=== PATIENT | female | born 1990 | race Caucasian/White ===

== ENCOUNTER 2017-01-04 05:52 | Day surgery (SDC) | payer OTHER ==
[2017-01-03 09:37] VITALS: BMI 33.5
[2017-01-04] VITALS (13 sets, daily range): BP systolic 104–128; BP diastolic 56–72; PULSE 64–90; RESP 16–24; Ht 172.7 cm; Wt 111.9 kg
[~2017-01-04] VITALS: Ht 172.7 cm; Wt 111.9 kg
[~2017-01-04 05:52] MED LIST: LACTATED RINGER'S 1,000 ML IV SCH; SULF500T5 PO; SULFASALAZINE
[2017-01-04 06:23] LABS: ADD SCAN DIFF NO
[2017-01-04 06:30] LABS: BASOPHILS % 0.4 % (0.0-2.0); EOSINOPHILS # 0.1 10^3/ul (0.0-0.5); EOSINOPHILS % 1.9 % (0.0-7.0); HEMATOCRIT 34.9 % (37.0-47.0); HEMOGLOBIN 11.3 g/dl (12.0-16.0); LYMPHOCYTES # 2.3 10^3/ul (0.8-2.9); LYMPHOCYTES % 33.1 % (15.0-51.0); MEAN CORPUSCULAR HEMOGLOBIN 27.6 pg (29.0-33.0); MEAN CORPUSCULAR HGB CONC 32.4 g/dl (32.0-37.0); MEAN CORPUSCULAR VOLUME 85.3 fl (82.0-101.0); MEAN PLATELET VOLUME 11.6 fl (7.4-10.4); MONOCYTE # 0.6 10^3/ul (0.3-0.9); MONOCYTES % 9.1 % (0.0-11.0); NEUTROPHIL # 3.8 10^3/ul (1.6-7.5); NEUTROPHILS % 55.2 % (39.0-77.0); PLATELET COUNT 227 10^3/UL (140-415); RED BLOOD COUNT 4.09 10^6/ul (4.20-5.40); RED CELL DISTRIBUTION WIDTH 13.2 % (11.5-14.5); WHITE BLOOD COUNT 6.9 10^3/ul (4.8-10.8)
[2017-01-04] MEDS ORDERED: METHYLENE BLUE 1% 10 ML INJ ONE (07:06)
[2017-01-04] MEDS ORDERED: THROMBIN 5000 UNIT VIAL ONE (07:06)
[2017-01-04] MEDS ORDERED: MIDAZOLAM 1 MG/ML 2 ML INJ ONE (08:08)
[2017-01-04] MEDS ORDERED: MEPERIDINE 25 MG INJ IV PRN (09:00)
[2017-01-04] MEDS ORDERED: HYDROmorphONE (0.2 MG/ML) 10ML SYG IV PRN ×2 (09:00)
[2017-01-04] MEDS ORDERED: DIPHENHYDRAMINE 50 MG INJ IV PRN (09:00)
[2017-01-04] MEDS ORDERED: ONDANSETRON 4 MG INJ IV PRN (09:00)
[2017-01-04] MEDS ORDERED: KETOROLAC 30 MG INJ ONE (09:38)
[2017-01-04] MEDS ORDERED: ONDANSETRON 4 MG INJ ONE (09:41)
[2017-01-04] MEDS ORDERED: METOCLOPRAMIDE 10 MG INJ ONE (09:41)
[2017-01-04] MEDS ORDERED: ROCURONIUM 50 MG INJ ONE (09:48)
[2017-01-04] MEDS ORDERED: NEOSTIGMINE 3 MG/3 ML SYRINGE ONE (09:48)
[2017-01-04] MEDS ORDERED: GLYCOPYRROLATE 0.4 MG INJ ONE (09:48)
[2017-01-04] MEDS ORDERED: LIDOCAINE 2% (SDV) 5 ML INJ ONE (09:48)
[2017-01-04] MEDS ORDERED: PROPOFOL 20 ML ONE (09:48)
--- NOTE | 2017-01-04 10:06 | PREOPHP ---
DATE OF ADMISSION: 01/04/2017 HISTORY OF PRESENT ILLNESS: A 26-year-old female, 1, para 1, last menstrual period 12/03/19, was admitted due to history of dysmenorrhea and dyspareunia. PAST MEDICAL HISTORY: Ulcerative colitis. PAST SURGICAL HISTORY: , hemorrhoidectomy, abdominoplasty and breast augmentation, cornea t ransplant. ALLERGIES: NO KNOWN ALLERGIES. FAMILY HISTORY: Noncontributory. PHYSICAL EXAMINATION: VITAL SIGNS: Patient is afebrile. Vital signs stable. HEAD, NECK AND CHEST: Within normal limits. ABDOMEN: Soft, nontender and nondistended. PELVIC: Normal. EXTREMITIES: Within normal limits. NEUROLOGIC: Within normal limits. IMPRESSION: Chronic pelvic pain, rule out endometriosis. PLAN: Diagnostic laparoscopy, possible excision of lesions. Risks, benefits and alternatives of th e procedure were explained to the patient. The patient said she understood and gave informed consen t for the procedure. Dictated By: IZZY ALMARAZ/STEFFEN Conf#: [id number] DID#: [id number]
[2017-01-04] MEDS: FENTAnyl 50 MCG/ML VIAL IV PRN ×2 (10:14→10:33)
--- NOTE | 2017-01-04 11:05 | OPR ---
DATE OF OPERATION: 01/04/2017 PREOPERATIVE DIAGNOSIS: 1. Chronic pelvic pain, rule out endometriosis. POSTOPERATIVE DIAGNOSES: 1. Chronic pelvic pain, rule out endometriosis. 2. Omental adhesions. OPERATION PERFORMED: Laparoscopy and lysis of omental adhesions, biopsy of posterior uterine wall a nd the right pelvic area, ablation of uterosacral ligaments. SURGEON: Izzy Buck MD GUN NUMBER AND INTRAOPERATIVE CONSULT: Keeley Mittal MD ANESTHESIA: General. ANESTHESIOLOGIST: Jewel Don MD DESCRIPTION OF PROCEDURE: The patient was taken to the operating room and placed on the operating t able in supine position. After adequate general anesthesia was given, the patient was placed in ramiro jazmyn lithotomy position. The area was prepared and draped in the usual sterile fashion. Using a scalpel, a small incision was made above the umbilicus. A 5 mm trocar was placed into the p eritoneal cavity, 5 mm laparoscope was passed through the trocar and pelvic area was explored. Ther e were omental adhesions involving anterior wall of the abdomen in order to visualize the pelvic are a. Using gyrus bipolar grasper sharp lysis of adhesions was performed. The pelvic area was explore d. The uterus appeared normal size. The ovaries and fallopian tubes appeared to be normal. There were no gross lesions suggestive of endometriosis. There were some areas on the posterior wall of th e uterus with some reactive process of questionable significance. Two trocars were placed in the la teral aspects of the abdomen. The trocars were 5 mm. Using grasper the posterior wall of the uteru s was biopsied and specimen obtained was sent to Pathology. Using cautery the site of the biopsy wa s cauterized and adequate hemostasis was assured. In the right posterior pelvic area there was also another area of questionable significance. Using grasper that area was biopsied also and specimen obtained was sent to Pathology. The biopsy site was cauterized. Adequate hemostasis was assured. Due to patient's chronic pelvic pain at this point, I asked Dr. Mittal to perform ablation of uter osacral ligaments. This part of the procedure will be dictated separately by Dr. Mittal. Pelvic area was irrigated with warm saline. Adequate hemostasis was assured. All the instruments were rem danielle. The trocar sites were reapproximated with 4-0 Monocryl. The patient tolerated the procedure well. Patient was awakened from anesthesia and transferred to recovery in stable condition. ESTIMATED BLOOD LOSS: Minimal. COMPLICATIONS: None. COUNTS: All counts were correct. Dictated By: IZZY BUCK MD GD/NTS Conf#: [id number] DID#: [id number] CC: KEELEY MITTAL MD;*EndCC*
--- NOTE | 2017-01-04 18:29 | OPR ---
Date/Time of Note Date/Time of Note DATE: 01/04/17 TIME: 18:29 Operative Report Procedure Date: January 04, 2017 Preoperative Diagnosis 2 OPERATIVE REPORT [facility] Name: [facility] Date: 01/04/17 Preoperative Diagnosis: Chronic pelvic pain Postoperative Diagnosis: same pathology pending Procedures: 1- Laparoscopy and biopsy of inflammation vs endometriosis (dictated as a separate procedure by Dr. Buck) 2- Consult/Ablation of utero-sacral ligaments Surgeon: Dr. Simental Java [employer] Developer: Dr. Buck Anesthesia: General Indication for Procedure: The patient is a 26- year old female with chronic pelvic pain and dysmenorrhea; and after considering all options with risks and benefits a laparoscopy with possible ablation of endometriosis and procedures as needed was selected. Summary of Procedure: After laparoscopy with initial exploration minimally friable cul-de-sac and uterine tissue was noted with some discoloration not entirely consistent with endometriosis which was biopsied and as the utero-sacral ligaments were involved my opinion was asked and the ligaments were cauterized immediately adjacent to the cervix empirically. The patient tolerated the procedure well. Findings and Procedure: After being prepped and draped in the usual manner a 5 millimeter trocar was Name: [facility] inserted directly cephlad to the umbilicus without incident and the omentum was observed to be adherent to the anterior abdomen. Subsequently, we insufflated to 15 mm Hg and inserted two 5 millimeter trocars laterally without incident and the aforementioned omental adhesions were lysed with sharp dissection and the Omni when able as well as Gyrus bipolar cutting forceps. The patient was then placed in Trendelenburg and mildly discolored tissue was biopsied by Dr. Buck and the adjacent cauterized and transected, after which the considering her chronic pain and involvement of the utero-sacral ligaments my opinion was asked, and given her severe chronic pain regardless I agreed that fulguration of the utero-sacral ligaments was appropriate. Hence, the ureters were visualized bilaterally and immediately adjacent to the cervix, the utero- sacral ligaments were cauterized with the Omni and Gyrus bipolar cutting forceps. After irrigating and assuring hemostasis the gas was removed and the skin of all sites then closed with 5-0 Monocryl suture. The EBL was minimal and the patient tolerated the procedure well and left the OR in good condition. Keeley Simental M.D. KEELEY SIMENTAL MD January 04, 2017 18:29
== END 2017-01-04 11:20 | disposition home or self-care (01) ==
LOC: SDS 05:52
PROVIDERS: ATTEND Obstetrics & Gynecology
DX: N73.6 Female pelvic peritoneal adhesions (postinfective) (principal); R10.2 Pelvic and perineal pain; E66.01 Morbid (severe) obesity due to excess calories; Z68.37 Body mass index [BMI] 37.0-37.9, adult
CPT/HCPCS: 49329; 85025; 86850; 86900; 86901; 88305; J1885; J2175; J2250; J2405; J2710; J2765; J3010; Z7512; Z7610

== ENCOUNTER 2017-05-16 16:43 | Inpatient (IN) | END 2017-05-20 20:30 | disposition home or self-care (01) | DRG 386 | DX: K50.10 Crohn's disease of large intestine without complications (principal); R71.0 Precipitous drop in hematocrit; K62.5 Hemorrhage of anus and rectum; H15.109 Unspecified episcleritis, unspecified eye; Z94.7 Corneal transplant status; F31.9 Bipolar disorder, unspecified; H16.9 Unspecified keratitis ==

== ENCOUNTER 2017-05-26 13:53 | Inpatient (IN) | payer OTHER ==
[~2017-05-26] VITALS: Ht 172.7 cm; Wt 88.4 kg
[~2017-05-26 13:53] MED LIST changes: +ASA400 PO; +DICL2.5D11 RIGHT EYE; +FER325 PO; -LACTATED RINGER'S 1,000 ML IV SCH; +LUBI24CA7 PO; +MULTI PO; +PRED10TA PO; -SULFASALAZINE; +[UNRECOGNIZED DRUG - OTHER] PR
[2017-05-26] MEDS ORDERED: SOD CHLORIDE 0.9% 1,000 ML IV STA (14:36)
[2017-05-26] MEDS ORDERED: KETOROLAC 30 MG INJ IV STA (14:36)
[2017-05-26 15:05] LABS: BASOPHILS % 0.3 % (0.0-2.0); EOSINOPHILS % 0.1 % (0.0-7.0); HEMATOCRIT 28.8 % (37.0-47.0); HEMOGLOBIN 9.1 g/dl (12.0-16.0); LYMPHOCYTES # 2.2 10^3/ul (0.8-2.9); LYMPHOCYTES % 18.6 % (15.0-51.0); MEAN CORPUSCULAR HEMOGLOBIN 26.9 pg (29.0-33.0); MEAN CORPUSCULAR HGB CONC 31.6 g/dl (32.0-37.0); MEAN CORPUSCULAR VOLUME 85.2 fl (82.0-101.0); MEAN PLATELET VOLUME 9.8 fl (7.4-10.4); MONOCYTE # 0.9 10^3/ul (0.3-0.9); MONOCYTES % 7.3 % (0.0-11.0); NEUTROPHIL # 8.3 10^3/ul (1.6-7.5); NEUTROPHILS % 69.6 % (39.0-77.0); NUCLEATED RED BLOOD CELLS # 0.1 10^3/ul (0.0-0.0); NUCLEATED RED BLOOD CELLS% 0.5 /100WBC (0.0-0.0); PLATELET COUNT 568 10^3/UL (140-415); RED BLOOD COUNT 3.38 10^6/ul (4.20-5.40); RED CELL DISTRIBUTION WIDTH 18.1 % (11.5-14.5); WHITE BLOOD COUNT 11.9 10^3/ul (4.8-10.8)
--- NOTE | 2017-05-26 15:23 | ERA ---
ER Documentation Chief Complaint Date/Time DATE: 05/26/17 TIME: 15:15 Chief Complaint losing conciousness to dinora bathroom,increased hr,sweating,clammy HPI This 26-year-old female with history of ulcerative colitis of the emergency room for increasing near syncope and an episode of syncope when she gets up out of bed to go to the bathroom. No head injury. States that she previously had heavy vaginal bleeding when she was admitted this facility. Reviewed her EMR and see that she was diagnosed with sepsis without source as well as microcytic anemia and normocytic anemia. Her hemoglobin at that time was 9.2. She had come to the hospital to [facility] and she had another episode of near syncope. Laboratories were done 6 days ago and show a hemoglobin of 7.2. She does state that she has some blood on her tissue paper she wipes following bowel movements. She has no further vaginal bleeding for the last few days. Does feel palpitations like her heart is beating too fast but does not have chest pain. Occasional shortness of breath per ROS All systems reviewed and are negative except as per history of present illness. Medications Home Meds Active Scripts Prednisone* (Prednisone*) 10 Mg Tab, 30 MG PO BID for 30 Days, #60 TAB Prov:TERESITA ARIZMENDI MD 05/20/17 Reported Medications Multivitamins* (Theragran*) 1 Tab Tab, 1 TAB PO DAILY, TAB 05/16/17 Sulfasalazine* (Sulfazine*) 500 Mg Tablet, 1000 MG PO BID, #100 01/03/17 Discontinued Scripts Diclofenac Sodium* (Diclofenac Oph*) 2.5 Ml Drops, 1 DROP RIGHT EYE QID Y for ITCHING, #1 EA Prov:TERESITA ARIZMENDI MD 05/20/17 Ferrous Sulfate* (Ferrous Sulfate*) 325 Mg Tabec, 325 MG PO BID for 30 Days, # 60 TAB Prov:TERESITA ARIZMENDI MD 05/20/17 Hydrocortisone* Rectal (Colocort Enema*) 100 Mg/60 Ml Soln, 100 MG AL HS for 30 Days, #30 Prov:TERESITA ARIZMENDI MD 05/20/17 Mesalamine (Delzicol) 400 Mg Cap.drtab., 800 MG PO TID for 30 Days, #90 Prov:TERESITA ARIZMENDI MD 05/20/17 Lubiprostone* (Amitiza*) 24 Mcg Capsule, 24 MCG PO BID for 30 Days, #60 CAP Prov:TERESITA ARIZMENDI MD 05/20/17 Allergies Allergies: Coded Allergies: cephalexin (Unverified Allergy, Unknown, 05/26/17) latex (Unverified Allergy, Unknown, 05/26/17) PMhx/Soc History of Surgery: Yes (Laprscopy 2016, C-sec. 2009, Breast Aug. 2010 Hemorroidectomy, Corneal tra) Anesthesia Reaction: No Hx Neurological Disorder: No Hx Respiratory Disorders: No Hx Cardiac Disorders: No Hx Psychiatric Problems: No Hx Miscellaneous Medical Probl: Yes (ulcerative colitis) Hx Alcohol Use: No Hx Substance Use: No Hx Tobacco Use: Yes Smoking Status: Current every day smoker Physical Exam Vitals Vital Signs Date Time Temp Pulse Resp B/P Pulse Ox O2 Delivery O2 Flow Rate FiO2 05/26/17 18:00 98.0 80 20 107/84 98 Room Air 05/26/17 16:18 98.5 108 20 115/78 97 Room Air 05/26/17 13:58 98.9 150 28 126/71 98 Physical Exam Const: [] L distress, appears uncomfortable Head: Atraumatic Eyes: Normal Conjunctiva ENT: Normal External Ears, Nose and Mouth. Neck: Full range of motion..~ No meningismus. Resp: Clear to auscultation bilaterally Cardio: Pronounced regular tachycardia, no murmurs Abd: Soft, mild diffuse tenderness, non distended. Normal bowel sounds Skin: No petechiae or rashes Back: No midline or flank tenderness Ext: No cyanosis, or edema Neur: Awake and alert and oriented 3, no focal deficits cranial nerves II through XII intact, finger to nose cerebellar normal, normal gait Psych: Normal Mood and Affect Result Diagram: 05/26/17 1720 05/26/17 1455 Results 24 hrs Laboratory Tests Test 05/26/17 14:55 05/26/17 15:30 05/26/17 17:20 White Blood Count 11.910^3/ul Red Blood Count 3.3810^6/ul Hemoglobin 9.1g/dl 8.7g/dl Hematocrit 28.8% 27.8% Mean Corpuscular Volume 85.2fl Mean Corpuscular Hemoglobin 26.9pg Mean Corpuscular Hemoglobin Concent 31.6g/dl Red Cell Distribution Width 18.1% Platelet Count 44457^3/UL Mean Platelet Volume 9.8fl Neutrophils % 69.6% Lymphocytes % 18.6% Monocytes % 7.3% Eosinophils % 0.1% Basophils % 0.3% Nucleated Red Blood Cells % 0.5/100WBC Neutrophils # 8.310^3/ul Lymphocytes # 2.210^3/ul Monocytes # 0.910^3/ul Eosinophils # 0.010^3/ul Basophils # 0.010^3/ul Nucleated Red Blood Cells # 0.110^3/ul Sodium Level 139mmol/L Potassium Level 3.9mmol/L Chloride Level 103mmol/L Carbon Dioxide Level 26mmol/L Anion Gap 14 Blood Urea Nitrogen 19mg/dl Creatinine 0.63mg/dl Glucose Level 130mg/dl Lactic Acid Level 3.2mmol/L Calcium Level 9.0mg/dl Total Bilirubin mg/dl Direct Bilirubin mg/dl Indirect Bilirubin mg/dl Aspartate Amino Transf (AST/SGOT) 105IU/L Alanine Aminotransferase (ALT/SGPT) 188IU/L Alkaline Phosphatase 167IU/L Troponin I < 0.012ng/ml Total Protein 7.5g/dl Albumin 3.2g/dl Globulin 4.30g/dl Albumin/Globulin Ratio 0.74 Lipase 70U/L Urine Color FREYA Urine Clarity CLOUDY Urine pH 6.0 Urine Specific [place] 1.025 Urine Ketones TRACEmg/dL Urine Nitrite NEGATIVEmg/dL Urine Bilirubin NEGATIVEmg/dL Urine Urobilinogen 1+mg/dL Urine Leukocyte Esterase TRACELeu/ul Urine Microscopic RBC 9/HPF Urine Microscopic WBC 6/HPF Urine Squamous Epithelial Cells MODERATE/HPF Urine Bacteria FEW/HPF Urine Mucus MANY/HPF Urine Hemoglobin 1+mg/dL Urine Glucose NEGATIVEmg/dL Urine Total Protein NEGATIVEmg/dl Current Medications Medications (Trade) Dose Ordered Sig/Jina Route PRN Reason Start Time Stop Time Status Last Admin Dose Admin Sodium Chloride (NS) 1,000 ml @ 1,000 mls/hr Q1H STAT IV 05/26/17 14:36 05/26/17 15:35 DC 05/26/17 15:56 Ketorolac Tromethamine 30 mg 30 mg ONCE STAT IV 05/26/17 14:36 05/26/17 14:38 DC 05/26/17 15:56 Sodium Chloride (NS) 1,000 ml @ 1,000 mls/hr Q1H ONCE IV 05/26/17 15:30 05/26/17 16:29 DC 05/26/17 15:57 Mesalamine 500 mg 500 mg ONCE ONCE PO 05/26/17 19:30 05/26/17 19:31 DC Ciprofloxacin/ Dextrose (Cipro Ivpb) 100 ml @ 100 mls/hr ONCE ONCE IVPB 05/26/17 20:00 05/26/17 20:59 Procedures/MDM UTI with sepsis. Diagnosis of sepsis was not made until 1740 after urinalysis had resulted. She was given 3 L of normal saline after which her tachycardia resolved. Is given ciprofloxacin IV as she is allergic to cephalosporins. Given Toradol for abdominal pain which resolved it. Her hemoglobin had spontaneously rebounded from 6 days ago it was 7.2, now 8.7, but still may be contributing to her symptoms.. No signs of cardiac ischemia related to her syncope. Does have a UTI with a heart rate of 150 initially and elevated white blood cell count. Mild elevation of her enzymes with no reporting of bilirubin for whatever reason. I have ordered a right upper quadrant ultrasound. She is being admitted by Dr. Shah for further treatment and monitoring. EKG interpretation: Sinus tachycardia rate of 111, normal axis, normal intervals , no ST or T-wave changes concerning for acute ischemia ekg monitor interpretation: Sinus tachycardia without other arrhythmia Departure Diagnosis: Primary Impression: Sepsis secondary to UTI Additional Impressions: Normocytic anemia Symptomatic anemia Dehydration Condition: Serious MICHELEARIELISAMARDEMARIO ESPARZA May 26, 2017 15:23
[2017-05-26 15:25] LABS: ALANINE AMINOTRANSFERASE 188 IU/L (13-69); ALBUMIN 3.2 g/dl (3.3-4.9); ALBUMIN/GLOBULIN RATIO 0.74; ALKALINE PHOSPHATASE 167 IU/L (42-121); ANION GAP 14 (8-16); ASPARTATE AMINO TRANSFERASE 105 IU/L (15-46); BLOOD UREA NITROGEN 19 mg/dl (7-20); CARBON DIOXIDE 26 mmol/L (21-31); CHLORIDE 103 mmol/L (97-110); CREATININE 0.63 mg/dl (0.44-1.00); GLUCOSE 130 mg/dl (70-220); POTASSIUM 3.9 mmol/L (3.5-5.1); SODIUM 139 mmol/L (135-144); TOTAL PROTEIN 7.5 g/dl (6.1-8.1)
[2017-05-26] MEDS ORDERED: SOD CHLORIDE 0.9% 1,000 ML IV ONE ×2 (15:30→20:00)
[2017-05-26 15:43] LABS: TROPONIN-I < 0.012 ng/ml (0.00-0.12)
[2017-05-26 16:46] LABS: ADD UMIC YES; UR ASCORBIC ACID NEGATIVE (NEGATIVE); UR BACTERIA FEW /HPF (NONE SEEN); UR BILIRUBIN (Dip) NEGATIVE (NEGATIVE); UR BLOOD (Dip) 1+ mg/dL (NEGATIVE); UR CLARITY CLOUDY (CLEAR); UR COLOR AMBER (YELLOW); UR GLUCOSE (Dip) NEGATIVE (NEGATIVE); UR KETONES (Dip) TRACE mg/dL (NEGATIVE); UR LEUKOCYTE ESTERASE (Dip) TRACE Leu/ul (NEGATIVE); UR MUCUS MANY /HPF (NONE SEEN); UR NITRITE (Dip) NEGATIVE (NEGATIVE); UR RBC 9 /HPF (0-5); UR SPECIFIC GRAVITY (Dip) 1.025 (1.003-1.030); UR SQUAMOUS EPITHELIAL CELL MODERATE /HPF (FEW); UR TOTAL PROTEIN (Dip) NEGATIVE (NEGATIVE); UR UROBILINOGEN (Dip) 1+ mg/dL (NEGATIVE)
[2017-05-26 17:42] LABS: HEMATOCRIT 27.8 % (37.0-47.0); HEMOGLOBIN 8.7 g/dl (12.0-16.0)
[2017-05-26] MEDS ORDERED: MESALAMINE (SR) 250 MG CAP PO ONE (19:30)
[2017-05-26] MEDS ORDERED: CIPROFLOXACIN 200 MG/D5W IVPB 100 ML IVPB ONE (20:00)
[2017-05-26] MEDS ORDERED: ACETAMINOPHEN 325 MG TAB PO PRN (20:30)
[2017-05-26] MEDS ORDERED: ONDANSETRON 4 MG INJ IV PRN (20:30)
--- NOTE | 2017-05-26 20:31 | RADRPT ---
PROCEDURE: US Abdomen (right upper quadrant). CLINICAL INDICATION: Right upper quadrant abdomen pain. TECHNIQUE: Multiple real-time longitudinal and transverse images of the right upper quadrant of th e abdomen were acquired utilizing a curved array transducer. Images were reviewed on a high-resoluti on PACS workstation. COMPARISON: CT scan of the abdomen and pelvis dated 05/16/2017. FINDINGS: The liver is normal in size and normal in echogenicity. There is no focal hepatic lesion. Color Doppler and pulsed Doppler sonography demonstrate normal ant egrade flow in the portal vein. The gallbladder is normal with no stones or wall thickening. There is no pericholecystic fluid paola ection. The bile ducts are normal with the common bile duct measuring mm in diameter. The visualized portions of the pancreas are unremarkable with obscuration of the tail of the pancrea s. No free fluid is present. The right kidney measures cm. There is normal echogenicity of the right kidney. There is no nga nephric fluid collection. No hydronephrosis, mass, or calculus is seen. IMPRESSION: 1. Unremarkable right upper quadrant abdomen ultrasound. RPTAT: QQ .Gary Graves MD, Date Time Electronically viewed and signed by .Gary Graves MD, on 05/26/2017 20:30 .R/
[2017-05-26 20:36] VITALS: TEMP 98.9
[2017-05-26 21:30] VITALS: BP 104/56; PULSE 74; RESP 17
[2017-05-26] MEDS ORDERED: SOD CHLORIDE 0.9% 1,000 ML IV SCH (23:00)
[2017-05-26] MEDS: predniSONE 10 MG TAB PO SCH (23:35)
[2017-05-26] MEDS: morphine 2 MG INJ IV PRN (23:36)
[2017-05-27 03:40] VITALS: Ht 172.7 cm; Wt 88.4 kg
[2017-05-27] MEDS: ARTIFICIAL TEARS 15 ML OPH BOTH EYES PRN ×5 (05:42→22:30)
[2017-05-27] MEDS: morphine 2 MG INJ IV PRN ×5 (05:50→22:25)
--- NOTE | 2017-05-27 06:48 | HP ---
Date/Time of Note Date/Time of Note DATE: 05/27/17 TIME: 06:35 Assessment/Plan VTE Prophylaxis VTE Prophylaxis Intervention: SCD's Lines/Catheters IV C[facility]ter Type (from [facility]): Saline Lock Assessment/Plan Assessment/Plan 1. Syncope, likely secondary to orthostatic hypotension -Check orthostatics -Give IV fluid 2. Sepsis, secondary to UTI -IV antibiotic -Follow-up culture results 3. Anemia, secondary to blood loss -Patient reported vaginal bleeding. Given history of extensive ulcerative colitis, GI blood loss is also a likely contributing factor -Check for iron deficiency -Pelvic ultrasound to evaluate for fibroids -Monitor H&H and transfuse as needed 4. History of ulcerative colitis -Patient was just admitted here a week ago for a flare-up. Colonoscopy was biopsy at that time showed extensive ulcerations -Continue home medications 5. Abnormal LFTs -worsened since recent admission. Could possibly be from the new UC medications Amitiza and mesalamine although not common. Note however that alk phos actually has significantly improved - RUQ U/S negative -Check hep panel -Monitor HPI/ROS Admit Date/Time Admit Date/Time May 26, 2017 at 20:03 Hx of Present Illness This is a 26-year-old female history of ulcerative colitis anemia who presented to the ER for loss of consciousness. She also reported heavy vaginal bleeding. She said she got out of bed and was walking when she felt lightheaded and her heart beating fast then had loss of consciousness. Denied chest pain. Patient was discharged from here a week ago after she was admitted for UC flare, with colonoscopy with biopsy at that time showing extensive ulceration. When she presented to the ER today, she was tachycardic with a heart rate of 150. Blood pressure was normal limits at 126/71. Labs shows WBC of almost 12, 000, hemoglobin 9.1, lactic acid 3.2, AST 105, ALT 188, alk phos 167. Urinalysis consistent with UTI. At the time of discharge last week, patient had a hemoglobin of 7.2. PMH/Family/Social Social History Smoking Status: Former smoker Exam/Review of Systems Vital Signs Vitals Vital Signs Date Time Temp Pulse Resp B/P Pulse Ox O2 Delivery O2 Flow Rate FiO2 05/26/17 21:30 97.6 74 17 104/56 100 Room Air Intake and Output 05/26/17 05/26/17 05/27/17 15:00 23:00 07:00 Intake Total 350 ml Balance 350 ml Exam Constitutional: alert, oriented, well developed Head: atraumatic, normocephalic Neck: non-tender, supple Respiratory: clear to auscultation, normal air movement Cardiovascular: nl pulses, regular rate and rhythm Gastrointestinal: non-tender, soft Extremities: normal pulses Labs Result Diagram: 05/26/17 1720 05/26/17 1455 Medications Medications Current Medications Morphine Sulfate 2 mg 2 mg Q4H PRN IV PAIN Last administered on 05/27/17 05: 50; Admin Dose 2 MG; Start 05/26/17 at 22:55 Sodium Chloride (NS) 1,000 ml @ 100 mls/hr Q10H IV Last administered on 01:28; Admin Dose 100 MLS/HR; Start 05/26/17 at 23:00; Stop 05/27/17 at 23:00 Multivitamins Therapeutic (Theragran) 1 tab DAILY PO ; Start 05/27/17 at 09:00 Prednisone (Prednisone) 30 mg BID PO Last administered on 05/26/17 23:35; Admin Dose 30 MG; Start 05/26/17 at 23:00 Sulfasalazine 1000 mg 1,000 mg BID PO ; Start 05/27/17 at 09:00 Ciprofloxacin/ Dextrose (Cipro Ivpb) 200 ml @ 200 mls/hr Q12 IVPB ; Start at 09:00 Eye Lubricant (Artificial Tears Oph) 2 drop QID PRN BOTH EYES DRY EYES Last administered on 05/27/17 05:42; Admin Dose 2 DROP; Start 05/27/17 at 04:30 ZULEMA VIDAL MD May 27, 2017 06:48
[2017-05-27 07:48] LABS: BASOPHILS % 0.1 % (0.0-2.0); HEMOGLOBIN 7.8 g/dl (12.0-16.0); LYMPHOCYTES # 1.3 10^3/ul (0.8-2.9); MEAN CORPUSCULAR HEMOGLOBIN 26.4 pg (29.0-33.0); MEAN CORPUSCULAR VOLUME 88.1 fl (82.0-101.0); MEAN PLATELET VOLUME 9.8 fl (7.4-10.4); MONOCYTE # 0.5 10^3/ul (0.3-0.9); MONOCYTES % 4.7 % (0.0-11.0); NEUTROPHIL # 8.5 10^3/ul (1.6-7.5); NEUTROPHILS % 81.1 % (39.0-77.0); PLATELET COUNT 440 10^3/UL (140-415); RED BLOOD COUNT 2.95 10^6/ul (4.20-5.40); RED CELL DISTRIBUTION WIDTH 18.4 % (11.5-14.5); WHITE BLOOD COUNT 10.4 10^3/ul (4.8-10.8)
[2017-05-27 07:49] VITALS: BP 96/58; RESP 18
[2017-05-27 08:21] LABS: ALBUMIN/GLOBULIN RATIO 0.81; CALCIUM 8.7 mg/dl (8.4-10.2); CREATININE 0.52 mg/dl (0.44-1.00); POTASSIUM 4.5 mmol/L (3.5-5.1); TOTAL PROTEIN 6.7 g/dl (6.1-8.1)
--- NOTE | 2017-05-27 08:43 | RADRPT ---
PROCEDURE: US Pelvis. CLINICAL INDICATION: Fibroid. TECHNIQUE: Multiple sonographic images of the pelvis were obtained utilizing a transabdominal and endovaginal technique. The images were reviewed on a PACS workstation. COMPARISON: Pelvic ultrasound from 04/18/2015. FINDINGS: The uterus is normal in size and echotexture and measures 6.7 x 3.1 x 3.8 cm. The endometrial echo c omplex is prominent and measures 15.9 mm. The right ovary has a normal echotexture and measures 3.5 x 2.1 x 2.5 cm. The left ovary has a norm al echotexture and measures 3.5 x 2.1 x 2.1 cm. There is Doppler flow seen to both ovaries. There is no free fluid in the cul-de-sac. No adnexal masses are noted. IMPRESSION: 1. Mildly prominent myometrial canal complex. This may be due to to the phase of the menstrual cycle . RPTAT: [facility] Physician Heriberto Date Time Electronically viewed and signed by Physician Heriberto on 05/27/2017 08:43 /
[2017-05-27 08:57] LABS: FERRITIN 78.5 ng/ml (6.2-137.0)
[2017-05-27] MEDS: CIPROFLOXACIN 400MG/D5W 200 ML IVPB SCH ×2 (08:58→21:41)
[2017-05-27] MEDS: predniSONE 10 MG TAB PO SCH ×2 (08:58→21:41)
[2017-05-27] MEDS: MULTIVITAMINS THERAPEUTIC TAB PO SCH (08:58)
[2017-05-27] MEDS: SULFASALAZINE 500 MG TAB PO SCH ×2 (08:58→21:41)
[2017-05-27] MEDS: SOD CHLORIDE 0.9% 1,000 ML IV SCH ×2 (12:00→15:35)
--- NOTE | 2017-05-27 13:43 | PN ---
Date/Time of Note Date/Time of Note DATE: 05/27/17 TIME: 13:38 Assessment/Plan VTE Prophylaxis VTE Prophylaxis Intervention: ambulation Lines/Catheters [facility] Saline Lock Assessment/Plan Chief Complaint/Hosp Course Patient is a 26-year-old female with past medical history of ulcerative colitis and immediate who presented to the ED for episodes of syncope. Assessment and plan Syncope, secondary likely to find depletion and orthostatic hypotension Sepsis Lactic acidosis UTI, questionable Anemia, secondary to blood loss secondary to ulcerative colitis Ulcerative colitis, history of recurrent relapse Fatigue Abnormal LFTs -Patient was volume depleted based on laboratory values and urinalysis, patient also had elevated lactic acid secondary to possible sepsis and/or volume depletion. -Continue antibiotics, fluids -Patient's AST and ALT have risen from its baseline approximately 1 week ago, GI has been consulted, patient is found to be hepatitis C antibody positive. 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 Will obtain echocardiogram. -Patient never started her new medications as none of them were covered by insurance, will need to follow-up with outpatient GI for prescription medication prior authorization. -Continue home meds for now, recommendations from GI pending Problems: Subjective 24 Hr Interval Summary Free Text/Dictation no acute issues, feels better Exam/Review of Systems Vital Signs Vitals Vital Signs Date Time Temp Pulse Resp B/P Pulse Ox O2 Delivery O2 Flow Rate FiO2 05/27/17 07:49 97.5 85 18 96/58 99 05/26/17 21:30 Room Air Intake and Output 05/26/17 05/26/17 05/27/17 15:00 23:00 07:00 Intake Total 350 ml Balance 350 ml Exam Physical exam General: Patient is laying in bed and answers questions appropriately Mentation: Patient is alert and oriented 4, Head: Normocephalic atraumatic Eyes: EOMI, pupils reactive to light Neck: Supple, nontender, midline Respiratory: Clear to auscultation bilaterally Cardiovascular: regular rate, no obvious murmurs Gastrointestinal: non-tender to palpation, bowel sounds heard. Neurological: Moves all extremities spontaneously Skin: No new skin lesions Results Result Diagram: 05/27/17 0724 05/27/17 0724 Results 24 hrs Laboratory Tests Test 05/26/17 14:55 05/26/17 15:30 05/26/17 17:20 05/27/17 07:24 White Blood Count 11.9 #H 10.4 Red Blood Count 3.38 #L 2.95 L Hemoglobin 9.1 #L 8.7 L 7.8 L Hematocrit 28.8 #L 27.8 L 26.0 L Mean Corpuscular Volume 85.2 88.1 Mean Corpuscular Hemoglobin 26.9 L 26.4 L Mean Corpuscular Hemoglobin Concent 31.6 L 30.0 L Red Cell Distribution Width 18.1 #H 18.4 H Platelet Count 568 H 440 #H Mean Platelet Volume 9.8 9.8 Neutrophils % 69.6 81.1 H Lymphocytes % 18.6 12.0 L Monocytes % 7.3 4.7 Eosinophils % 0.1 0.0 Basophils % 0.3 0.1 Nucleated Red Blood Cells % 0.5 H 0.0 Neutrophils # 8.3 H 8.5 H Lymphocytes # 2.2 1.3 Monocytes # 0.9 0.5 Eosinophils # 0.0 0.0 Basophils # 0.0 0.0 Nucleated Red Blood Cells # 0.1 H 0.0 Sodium Level 139 139 Potassium Level 3.9 4.5 Chloride Level 103 106 Carbon Dioxide Level 26 26 Anion Gap 14 12 Blood Urea Nitrogen 19 17 Creatinine 0.63 0.52 Glucose Level 130 101 Lactic Acid Level 3.2 *H Calcium Level 9.0 8.7 Total Bilirubin 0.0 L Direct Bilirubin 0.00 Indirect Bilirubin 0.0 Aspartate Amino Transf (AST/SGOT) 105 H 73 H Alanine Aminotransferase (ALT/SGPT) 188 H 195 H Alkaline Phosphatase 167 H 121 Troponin I < 0.012 Total Protein 7.5 6.7 Albumin 3.2 L 3.0 L Globulin 4.30 H 3.70 H Albumin/Globulin Ratio 0.74 0.81 Lipase 70 Urine Color FREYA Urine Clarity CLOUDY A Urine pH 6.0 Urine Specific [place] 1.025 Urine Ketones TRACE A Urine Nitrite NEGATIVE Urine Bilirubin NEGATIVE Urine Urobilinogen 1+ H Urine Leukocyte Esterase TRACE A Urine Microscopic RBC 9 H Urine Microscopic WBC 6 H Urine Squamous Epithelial Cells MODERATE Urine Bacteria FEW A Urine Mucus MANY A Urine Hemoglobin 1+ H Urine Glucose NEGATIVE Urine Total Protein NEGATIVE Ferritin 78.5 Hepatitis B Surface Antigen NEGATIVE Hepatitis B Surface Antibody POSITIVE H Hepatitis C Antibody REACTIVE H Medications Medications Current Medications Morphine Sulfate (morphine) 2 mg Q4H PRN IV PAIN Last administered on 10:04; Admin Dose 2 MG; Start 05/26/17 at 22:55 Multivitamins Therapeutic (Theragran) 1 tab DAILY PO Last administered on 05/27 08:58; Admin Dose 1 TAB; Start 05/27/17 at 09:00 Prednisone (Prednisone) 30 mg BID PO Last administered on 05/27/17 08:58; Admin Dose 30 MG; Start 05/26/17 at 23:00 Sulfasalazine 1000 mg 1,000 mg BID PO Last administered on 05/27/17 08:58; Admin Dose 1,000 MG; Start 05/27/17 at 09:00 Ciprofloxacin/ Dextrose (Cipro Ivpb) 200 ml @ 200 mls/hr Q12 IVPB Last administered on 05/27/17 08:58; Admin Dose 200 MLS/HR; Start 05/27/17 at 09: 00 Eye Lubricant 2 drop 2 drop QID PRN BOTH EYES DRY EYES Last administered on 10:26; Admin Dose 2 DROP; Start 05/27/17 at 04:30 Sodium Chloride (NS) 1,000 ml @ 100 mls/hr Q10H IV ; Start 05/27/17 at 12:00 ZAHRA KENNY May 27, 2017 13:43
[2017-05-27 14:00] VITALS: BP 103/61; RESP 18
[2017-05-27 19:22] VITALS: BP 111/64; RESP 22
--- NOTE | 2017-05-27 20:50 | RADRPT ---
Echocardiogram Report Patient Name: VIVEK BOLAÑOS Gender: Female Date: 1990 Study Date: 27-May-2017 Stained Glass Joiner: CLARITA Location: I Ref. Physician: ZAHRA KENNY Quality: Good Procedures: Transthoracic echocardiogram with complete 2D, M-Mode, and doppler examination. Indications: Syncope. 2D/M Mode Doppler Measurement Value Normal Ranges Measurement Value Normal Ranges AoR Diam MM 3.0 cm BRAIN Vmax 2.1 cm2 LA/Ao MM 1.0 BRAIN VTI 2.1 cm2 LA Dimen MM 2.9 cm AV Peak Miguel 1.5 m/sec LVIDd 2D 4.1 3.5 - 5.6 cm AV Peak PG 8.4 mmHg LVIDs 2D 2.6 2.1 - 4.1 cm LVOT Peak Miguel 1.1 m/sec LVPWd 2D 1.1 0.6 - 1.1 cm LVOT Peak PG 4.5 mmHg IVSd 2D 1.1 0.6 - 1.1 cm MV E Peak Miguel 0.7 m/sec EDV 2D 72.4 cm3 MV A Peak Miguel 0.5 m/sec ESV 2D 18.5 cm3 MV E/A 1.5 EF 2D 65.0 50.0 - 65.0 % MV Decel Time 227 msec LVOT Diam 1.9 cm MV Decel [place] 3 MV E/A 1.5 Findings Left Ventricle: Normal left ventricular systolic function. Normal left ventricular cavity size. Normal left ventricular wall thickness. Ejection fraction is visually estimated at 55 %. Right Ventricle: Normal right ventricular size. Normal right ventricular systolic function. Left Atrium: The left atrium is normal in size. Right Atrium: The right atrium is normal in size. Mitral Valve: Normal appearance of the mitral valve. Trace mitral regurgitation. Aortic Valve: Normal appearance of the aortic valve. No significant aortic stenosis or insufficiency. Normal trileaflet aortic valve structure. Tricuspid Valve: Normal appearance of the tricuspid valve. There is trace tricuspid regurgitation. Pulmonic Valve: Normal pulmonic valve appearance. Pericardium: Normal pericardium with no significant pericardial effusion. Aorta: Normal aortic root. IVC: Normal size and normal respiratory collapse consistent with normal right atrial pressure. Conclusions 1.Normal left ventricular systolic function. Normal left ventricular cavity size. Normal left ventricular wall thickness. Ejection fraction is visually estimated at 55 %. 2.Normal appearance of the mitral valve. Trace mitral regurgitation. 3.Normal appearance of the tricuspid valve. There is trace tricuspid regurgitation. Electronically Signed By: Eleicer Danielson 27-May-2017 20:49:54 -0700 Patient Name: VIVEK BOLAÑOS Study Date: 27-May-[id number]
[2017-05-28 01:44] VITALS: BP 113/52; RESP 22
[2017-05-28] MEDS: morphine 2 MG INJ IV PRN ×3 (03:50→14:12)
[2017-05-28] MEDS: ARTIFICIAL TEARS 15 ML OPH BOTH EYES PRN ×2 (04:38→21:36)
[2017-05-28 05:41] LABS: EOSINOPHILS # 0.1 10^3/ul (0.0-0.5); EOSINOPHILS % 0.6 % (0.0-7.0); HEMATOCRIT 25.2 % (37.0-47.0); HEMOGLOBIN 7.8 g/dl (12.0-16.0); LYMPHOCYTES # 1.3 10^3/ul (0.8-2.9); LYMPHOCYTES % 16.9 % (15.0-51.0); MEAN CORPUSCULAR HEMOGLOBIN 27.3 pg (29.0-33.0); MEAN CORPUSCULAR VOLUME 88.1 fl (82.0-101.0); MEAN PLATELET VOLUME 9.6 fl (7.4-10.4); MONOCYTE # 0.8 10^3/ul (0.3-0.9); MONOCYTES % 9.9 % (0.0-11.0); NEUTROPHIL # 5.7 10^3/ul (1.6-7.5); NEUTROPHILS % 71.2 % (39.0-77.0); PLATELET COUNT 366 10^3/UL (140-415); RED BLOOD COUNT 2.86 10^6/ul (4.20-5.40); RED CELL DISTRIBUTION WIDTH 18.6 % (11.5-14.5); WHITE BLOOD COUNT 7.9 10^3/ul (4.8-10.8)
[2017-05-28 06:25] LABS: ALBUMIN/GLOBULIN RATIO 0.88; BILIRUBIN,DIRECT 0.3 mg/dl (0.00-0.20); BILIRUBIN,TOTAL 0.3 mg/dl (0.2-1.3); CALCIUM 8.4 mg/dl (8.4-10.2); CREATININE 0.51 mg/dl (0.44-1.00); POTASSIUM 4.4 mmol/L (3.5-5.1); TOTAL PROTEIN 6.4 g/dl (6.1-8.1)
--- NOTE | 2017-05-28 07:34 | CONS ---
DATE OF ADMISSION: 05/26/2017 DATE OF CONSULTATION: TYPE OF CONSULTATION: Gastroenterology. REFERRED BY: Dr. Dalton Oconnor. HISTORY OF PRESENT ILLNESS: The patient is a 26-year-old female with left-sided severe ulcerative c olitis, on prednisone, comes to the hospital complaining of a syncopal episode. She also has heavy vaginal bleeding. No chest pain, no shortness of breath. Her GI symptoms are very well under contr ol. She moves her bowels once a day. No bleeding. No constitutional symptoms like fevers, chills or weight loss. In the ER, she was evaluated, she was found to be tachycardic, blood pressure was s table, hematocrit was stable, liver functions were mildly abnormal. Because of a syncopal episode s he was admitted for further management. Of note, patient could not buy mesalamine, it was not cover ed by her insurance, so just taking prednisone. PAST MEDICAL HISTORY: Please refer to the old chart. SOCIAL HISTORY: No smoking, no alcohol. PHYSICAL EXAMINATION GENERAL: Well-built, nourished, not in distress. VITAL SIGNS: Stable. HEENT: Unremarkable. NECK: Supple, no thyromegaly, no lymphadenopathy. CARDIOVASCULAR: No murmur, gallop or click. LUNGS: Clear. ABDOMEN: Benign. EXTREMITIES: No edema. CENTRAL NERVOUS SYSTEM: Grossly within normal limits. She does have episcleritis. IMPRESSION: 1. Syncopal episode, the exact etiology is unclear. 2. Urinary tract infection. 3. Ulcerative colitis confined to the left side of the colon and it is much better on steroids. 4. Abnormal LFT, most probably related to steatohepatitis. Her hepatitis C antibody is positive, w e will have to get a hepatitis C PCR and RNA load to make sure it is not falsely positive. Patient' s magnetic resonance cholangiopancreatography in the past for primary sclerosing cholangitis was neg ative. PLAN: To continue prednisone. Since mesalamine is not covered we will start her on Azulfidine 2 gr ams b.i.d. Continue further workup for syncopal episode. Will review the viral load for hepatitis C once it is available. Dictated By: ELIZABETH JUNIOR/STEFFEN Conf#: [id number] DID#: [id number]
[2017-05-28 08:00] VITALS: BP 104/60; RESP 18
[2017-05-28] MEDS: SOD CHLORIDE 0.9% 1,000 ML IV SCH ×2 (09:20→18:00)
[2017-05-28] MEDS: CIPROFLOXACIN 400MG/D5W 200 ML IVPB SCH ×2 (09:20→21:00)
[2017-05-28] MEDS: MULTIVITAMINS THERAPEUTIC TAB PO SCH (09:24)
[2017-05-28] MEDS: SULFASALAZINE 500 MG TAB PO SCH ×2 (09:24→21:35)
[2017-05-28] MEDS: predniSONE 10 MG TAB PO SCH ×2 (09:24→21:35)
--- NOTE | 2017-05-28 12:20 | PN ---
Date/Time of Note Date/Time of Note DATE: 05/28/17 TIME: 12:16 Assessment/Plan VTE Prophylaxis VTE Prophylaxis Intervention: SCD's Lines/Catheters IV C[facility]ter Type (from [facility]): Saline Lock Assessment/Plan Chief Complaint/Hosp Course Patient is a 26-year-old female with past medical history of ulcerative colitis and immediate who presented to the ED for episodes of syncope. Assessment and plan Syncope, secondary likely to volume depletion and orthostatic hypotension Sepsis Lactic acidosis UTI, questionable Anemia, secondary to blood loss secondary to ulcerative colitis Ulcerative colitis, history of recurrent relapse Fatigue Abnormal LFTs hepatitis C AB positive -Patient feels much better, continue fluids for now -Continue antibiotics, patient is a very high risk of bounce back, will wait for UA sensitivities before DC -Discussed with patient hepatitis C antibody positive result, will follow up with hepatitis C viral load in the outpatient setting if not available by discharge -GI has been consulted recommendations appreciated, continue sulfasalazine, in the outpatient setting patient will get prior off for other medications, continue steroids -Echocardiogram noted, within normal limits -Monitor Problems: Subjective 24 Hr Interval Summary Free Text/Dictation feels much better today Exam/Review of Systems Vital Signs Vitals Vital Signs Date Time Temp Pulse Resp B/P Pulse Ox O2 Delivery O2 Flow Rate FiO2 05/28/17 08:00 98.4 75 18 104/60 98 05/26/17 21:30 Room Air Intake and Output 05/27/17 05/27/17 05/28/17 15:00 23:00 07:00 Intake Total 200 ml 1150 ml 1700 ml Output Total 850 ml Balance 200 ml 1150 ml 850 ml Exam Physical exam General: Patient is laying in bed and answers questions appropriately Mentation: Patient is alert and oriented 4, Head: Normocephalic atraumatic Eyes: EOMI, pupils reactive to light Neck: Supple, nontender, midline Respiratory: Clear to auscultation bilaterally Cardiovascular: regular rate, no obvious murmurs Gastrointestinal: non-tender to palpation, bowel sounds heard. Neurological: Moves all extremities spontaneously Skin: No new skin lesions Results Result Diagram: 05/28/178 05/28/17427 Results 24 hrs Laboratory Tests Test 05/27/17 14:00 05/28/17 04:28 Lactic Acid Level 2.8 *H 2.0 Hepatitis C Antibody REACTIVE H White Blood Count 7.9 # Red Blood Count 2.86 L Hemoglobin 7.8 L Hematocrit 25.2 L Mean Corpuscular Volume 88.1 Mean Corpuscular Hemoglobin 27.3 L Mean Corpuscular Hemoglobin Concent 31.0 L Red Cell Distribution Width 18.6 H Platelet Count 366 Mean Platelet Volume 9.6 Neutrophils % 71.2 Lymphocytes % 16.9 Monocytes % 9.9 Eosinophils % 0.6 Basophils % 0.0 Nucleated Red Blood Cells % 0.0 Neutrophils # 5.7 Lymphocytes # 1.3 Monocytes # 0.8 Eosinophils # 0.1 Basophils # 0.0 Nucleated Red Blood Cells # 0.0 Sodium Level 140 Potassium Level 4.4 Chloride Level 106 Carbon Dioxide Level 25 Anion Gap 13 Blood Urea Nitrogen 13 Creatinine 0.51 Glucose Level 96 Calcium Level 8.4 Total Bilirubin 0.3 Direct Bilirubin 0.30 #H Indirect Bilirubin 0.0 Aspartate Amino Transf (AST/SGOT) 46 Alanine Aminotransferase (ALT/SGPT) 150 H Alkaline Phosphatase 115 Total Protein 6.4 Albumin 3.0 L Globulin 3.40 H Albumin/Globulin Ratio 0.88 Medications Medications Current Medications Morphine Sulfate (morphine) 2 mg Q4H PRN IV PAIN Last administered on 09:37; Admin Dose 2 MG; Start 05/26/17 at 22:55 Multivitamins Therapeutic (Theragran) 1 tab DAILY PO Last administered on 05/28 09:24; Admin Dose 1 TAB; Start 05/27/17 at 09:00 Prednisone (Prednisone) 30 mg BID PO Last administered on 05/28/17 09:24; Admin Dose 30 MG; Start 05/26/17 at 23:00 Sulfasalazine 1000 mg 1,000 mg BID PO Last administered on 05/28/17 09:24; Admin Dose 1,000 MG; Start 05/27/17 at 09:00 Ciprofloxacin/ Dextrose (Cipro Ivpb) 200 ml @ 200 mls/hr Q12 IVPB Last administered on 05/28/17 09:20; Admin Dose 200 MLS/HR; Start 05/27/17 at 09: 00 Eye Lubricant 2 drop 2 drop QID PRN BOTH EYES DRY EYES Last administered on 04:38; Admin Dose 2 DROP; Start 05/27/17 at 04:30 Sodium Chloride (NS) 1,000 ml @ 100 mls/hr Q10H IV Last administered on t 09:20; Admin Dose 100 MLS/HR; Start 05/27/17 at 12:00 ZAHRA KENNY May 28, 2017 12:20
[2017-05-28 13:31] VITALS: BP 107/65; RESP 18
--- NOTE | 2017-05-28 15:28 | CONS ---
Date/Time of Note Date/Time of Note DATE: 05/28/17 TIME: 15:28 Assessment/Plan Assessment/Plan Additional Assessment/Plan IMPRESSION: 1. Syncopal episode, the exact etiology is unclear. 2. Urinary tract infection. 3. Ulcerative colitis confined to the left side of the colon and it is much better on steroids. 4. Abnormal LFT, most probably related to steatohepatitis. Her hepatitis C antibody is positive, we will have to get a hepatitis C PCR and RNA load to make sure it is not falsely positive. Patient's magnetic resonance cholangiopancreatography in the past for primary sclerosing cholangitis was negative. Plan Continue prednisone Add Azulfidine Consultation Date/Type/Reason Admit Date/Time May 26, 2017 at 20:03 Initial Consult Date 24 HR Interval Summary Constitutional: improved Exam/Review of Systems Vital Signs Vitals Vital Signs Date Time Temp Pulse Resp B/P Pulse Ox O2 Delivery O2 Flow Rate FiO2 05/28/17 13:31 98.3 79 18 107/65 98 05/26/17 21:30 Room Air Intake and Output 05/27/17 05/27/17 05/28/17 15:00 23:00 07:00 Intake Total 200 ml 1150 ml 1700 ml Output Total 850 ml Balance 200 ml 1150 ml 850 ml Exam Constitutional: alert, oriented, well developed Psych: nl mood/affect, no complaints Head: atraumatic, normocephalic Eyes: EOMI, PERRL, nl conjunctiva, nl lids, nl sclera ENMT: nl external ears & nose, nl lips & teeth, nl nasal mucosa & septum Neck: non-tender, supple Respiratory: clear to auscultation, normal air movement Cardiovascular: nl pulses, regular rate and rhythm Gastrointestinal: nl liver, spleen, non-tender, soft Musculoskeletal: nl extremities to inspection, nl gait and stance Extremities: normal pulses Neurological: TONGUE LINING STITCHER II-XII intact, nl mental status, nl speech, nl strength Skin: nl turgor, No rash or lesions Lymph: nl lymph nodes Results Result Diagram: 05/28/17 0428 05/28/17 0428 Results 24 hrs Laboratory Tests Test 05/28/17 04:28 White Blood Count 7.9 # Red Blood Count 2.86 L Hemoglobin 7.8 L Hematocrit 25.2 L Mean Corpuscular Volume 88.1 Mean Corpuscular Hemoglobin 27.3 L Mean Corpuscular Hemoglobin Concent 31.0 L Red Cell Distribution Width 18.6 H Platelet Count 366 Mean Platelet Volume 9.6 Neutrophils % 71.2 Lymphocytes % 16.9 Monocytes % 9.9 Eosinophils % 0.6 Basophils % 0.0 Nucleated Red Blood Cells % 0.0 Neutrophils # 5.7 Lymphocytes # 1.3 Monocytes # 0.8 Eosinophils # 0.1 Basophils # 0.0 Nucleated Red Blood Cells # 0.0 Sodium Level 140 Potassium Level 4.4 Chloride Level 106 Carbon Dioxide Level 25 Anion Gap 13 Blood Urea Nitrogen 13 Creatinine 0.51 Glucose Level 96 Lactic Acid Level 2.0 Calcium Level 8.4 Total Bilirubin 0.3 Direct Bilirubin 0.30 #H Indirect Bilirubin 0.0 Aspartate Amino Transf (AST/SGOT) 46 Alanine Aminotransferase (ALT/SGPT) 150 H Alkaline Phosphatase 115 Total Protein 6.4 Albumin 3.0 L Globulin 3.40 H Albumin/Globulin Ratio 0.88 Medications Medications Current Medications Morphine Sulfate (morphine) 2 mg Q4H PRN IV PAIN Last administered on 14:12; Admin Dose 2 MG; Start 05/26/17 at 22:55 Multivitamins Therapeutic (Theragran) 1 tab DAILY PO Last administered on 05/28 09:24; Admin Dose 1 TAB; Start 05/27/17 at 09:00 Prednisone (Prednisone) 30 mg BID PO Last administered on 05/28/17 09:24; Admin Dose 30 MG; Start 05/26/17 at 23:00 Sulfasalazine 1000 mg 1,000 mg BID PO Last administered on 05/28/17 09:24; Admin Dose 1,000 MG; Start 05/27/17 at 09:00 Ciprofloxacin/ Dextrose (Cipro Ivpb) 200 ml @ 200 mls/hr Q12 IVPB Last administered on 05/28/17 09:20; Admin Dose 200 MLS/HR; Start 05/27/17 at 09: 00 Eye Lubricant 2 drop 2 drop QID PRN BOTH EYES DRY EYES Last administered on 04:38; Admin Dose 2 DROP; Start 05/27/17 at 04:30 Sodium Chloride (NS) 1,000 ml @ 100 mls/hr Q10H IV Last administered on 09:20; Admin Dose 100 MLS/HR; Start 05/27/17 at 12:00 Oxycodone HCl (Roxicodone) 5 mg Q6H PRN PO PAIN; Start 05/28/17 at 15:30 ELIZABETH THOMPSON MD May 28, 2017 15:28
[2017-05-28] MEDS: oxyCODONE 5 MG TAB PO PRN ×2 (16:19→22:08)
[2017-05-28 19:50] VITALS: BP 100/57; RESP 18
[2017-05-29 01:55] VITALS: BP 108/57; RESP 18
[2017-05-29] MEDS: SOD CHLORIDE 0.9% 1,000 ML IV SCH ×2 (04:00→14:00)
[2017-05-29] MEDS: oxyCODONE 5 MG TAB PO PRN ×2 (05:49→14:26)
[2017-05-29 06:06] LABS: BASOPHILS % 0.2 % (0.0-2.0); EOSINOPHILS % 0.6 % (0.0-7.0); HEMATOCRIT 27.2 % (37.0-47.0); HEMOGLOBIN 8.2 g/dl (12.0-16.0); LYMPHOCYTES # 1.3 10^3/ul (0.8-2.9); MEAN CORPUSCULAR HEMOGLOBIN 26.6 pg (29.0-33.0); MEAN CORPUSCULAR HGB CONC 30.1 g/dl (32.0-37.0); MEAN CORPUSCULAR VOLUME 88.3 fl (82.0-101.0); MEAN PLATELET VOLUME 10.4 fl (7.4-10.4); MONOCYTE # 0.7 10^3/ul (0.3-0.9); MONOCYTES % 14.2 % (0.0-11.0); NEUTROPHILS % 58.4 % (39.0-77.0); PLATELET COUNT 362 10^3/UL (140-415); RED BLOOD COUNT 3.08 10^6/ul (4.20-5.40); RED CELL DISTRIBUTION WIDTH 18.9 % (11.5-14.5); WHITE BLOOD COUNT 5.1 10^3/ul (4.8-10.8)
[2017-05-29 06:51] LABS: CALCIUM 8.7 mg/dl (8.4-10.2); CREATININE 0.44 mg/dl (0.44-1.00); MAGNESIUM 1.8 mg/dl (1.7-2.5); PHOSPHORUS 3.8 mg/dl (2.5-4.9); POTASSIUM 4.6 mmol/L (3.5-5.1)
[2017-05-29 07:51] VITALS: BP 107/62; RESP 16
[2017-05-29] MEDS: CIPROFLOXACIN 400MG/D5W 200 ML IVPB SCH (09:06)
[2017-05-29] MEDS: SULFASALAZINE 500 MG TAB PO SCH (09:06)
[2017-05-29] MEDS: predniSONE 10 MG TAB PO SCH (09:06)
[2017-05-29] MEDS: MULTIVITAMINS THERAPEUTIC TAB PO SCH (09:06)
[2017-05-29] MEDS ORDERED: CIPR500T4 PO (11:38)
[2017-05-29] MEDS ORDERED: OXYC-481 PO (11:38)
[2017-05-29] MEDS ORDERED: MULTI PO (11:38)
--- NOTE | 2017-05-29 11:41 | PDOCDIS ---
Discharge Instructions CONDITION Patient Condition: Stable HOME CARE INSTRUCTIONS: Special Diet: regular FOLLOW UP/APPOINTMENTS Follow-up Plan 1. Follow up with your GI doctor to follow up with hepatitis C viral load results 2. Take medications as directed 3. Follow up with your primary care provider as soon as possible. ZAHRA KENNY May 29, 2017 11:41
--- NOTE | 2017-05-29 11:54 | DS ---
Date/Time of Note Date/Time of Note DATE: 05/29/17 TIME: 11:53 Discharge Summary Admission/Discharge Info Admit Date/Time May 26, 2017 at 20:03 Discharge Date/Time Patient Condition: Stable Hx of Present Illness This is a 26-year-old female history of ulcerative colitis anemia who presented to the ER for loss of consciousness. She also reported heavy vaginal bleeding. She said she got out of bed and was walking when she felt lightheaded and her heart beating fast then had loss of consciousness. Denied chest pain. Patient was discharged from here a week ago after she was admitted for UC flare, with colonoscopy with biopsy at that time showing extensive ulceration. When she presented to the ER today, she was tachycardic with a heart rate of 150. Blood pressure was normal limits at 126/71. Labs shows WBC of almost 12, 000, hemoglobin 9.1, lactic acid 3.2, AST 105, ALT 188, alk phos 167. Urinalysis consistent with UTI. At the time of discharge last week, patient had a hemoglobin of 7.2. Hospital Course Discharge Diagnosis Syncope, secondary likely to volume depletion and orthostatic hypotension Sepsis Lactic acidosis UTI Anemia, secondary to blood loss secondary to ulcerative colitis Ulcerative colitis, history of recurrent relapse Fatigue Abnormal LFTs hepatitis C AB positive Patient is a 18-year-old female who originally presented for episode of syncope. Patient was found to be volume depleted and was evaluated and found to have UTI, and started on antibiotics and fluids. Patient has a remote history of cocaine and methamphetamine use, also stated that as a teenager she was told her heart was not normal, therefore an echocardiogram was done for possible reason of syncope in addition to volume depletion and UTI, however echocardiogram returned within normal limits. Patient had likely sepsis secondary to UTI and eventually lactic acid resolved. Patient was continued on antibiotics and final cultures were obtained as multiple species of gram- positive, and as patient did well on inpatient Cipro, patient will be discharged with Cipro oral to finish out her antibiotic. Patient's AST and ALT were also high during this admission, GI was reconsulted, and stated it was likely fatty liver. Incidentally hepatitis panel was taken and patient was found to have a hepatitis C antibody positive. Viral hepatitis C load was sent out and is currently pending, patient will find follow-up with her GI physician who has access to [facility] records for final recommendations on hepatitis C. Patient was not able to fill previous medications for her ulcerative colitis, therefore GI optimized her medications and stated she would need to follow-up with outpatient setting for additional prior authorizations for new medications. Patient is to continue medications per GI and her antibiotic and will follow up with her primary care provider and GI as soon as possible. Home Meds Active Scripts Oxycodone Hcl* (IR) (Roxicodone*) 5 Mg Tab, 5 MG PO Q12 Y for PAIN, #20 TAB Prov:ZAHRA KENNY 05/29/17 Ciprofloxacin Hcl* (Ciprofloxacin Hcl*) 500 Mg Tablet, 500 MG PO Q12, #10 TAB Prov:ZAHRA KENNY 05/29/17 Multivitamins* (Theragran*) 1 Tab Tab, 1 TAB PO DAILY for 30 Days, #30 TAB 3 Refills Prov:ZAHRA KENNY 05/29/17 Prednisone* (Prednisone*) 10 Mg Tab, 30 MG PO BID for 30 Days, #60 TAB Prov:TERESITA ARIZMENDI MD 05/20/17 Reported Medications Sulfasalazine* (Sulfazine*) 500 Mg Tablet, 1000 MG PO BID, #100 01/03/17 Discontinued Scripts Diclofenac Sodium* (Diclofenac Oph*) 2.5 Ml Drops, 1 DROP RIGHT EYE QID Y for ITCHING, #1 EA Prov:TERESITA ARIZMENDI MD 05/20/17 Ferrous Sulfate* (Ferrous Sulfate*) 325 Mg Tabec, 325 MG PO BID for 30 Days, # 60 TAB Prov:TERESITA ARIZMENDI MD 05/20/17 Hydrocortisone* Rectal (Colocort Enema*) 100 Mg/60 Ml Soln, 100 MG RI HS for 30 Days, #30 Prov:TERESITA ARIZMENDI MD 05/20/17 Mesalamine (Delzicol) 400 Mg Cap.drtab., 800 MG PO TID for 30 Days, #90 Prov:TERESITA ARIZMENDI MD 05/20/17 Lubiprostone* (Amitiza*) 24 Mcg Capsule, 24 MCG PO BID for 30 Days, #60 CAP Prov:TERESITA ARIZMENDI MD 05/20/17 Follow-up Plan 1. Follow up with your GI doctor to follow up with hepatitis C viral load results 2. Take medications as directed 3. Follow up with your primary care provider as soon as possible. Primary Care Provider [facility] Time spent on discharge: > 30 minutes Pending Labs Laboratory Tests Test 05/29/17 04:27 White Blood Count 5.110^3/ul (4.8-10.8) Red Blood Count 3.0810^6/ul (4.20-5.40) Hemoglobin 8.2g/dl (12.0-16.0) Hematocrit 27.2% (37.0-47.0) Mean Corpuscular Volume 88.3fl (82.0-101.0) Mean Corpuscular Hemoglobin 26.6pg (29.0-33.0) Mean Corpuscular Hemoglobin Concent 30.1g/dl (32.0-37.0) Red Cell Distribution Width 18.9% (11.5-14.5) Platelet Count 54170^3/UL (140-415) Mean Platelet Volume 10.4fl (7.4-10.4) Neutrophils % 58.4% (39.0-77.0) Lymphocytes % 25.0% (15.0-51.0) Monocytes % 14.2% (0.0-11.0) Eosinophils % 0.6% (0.0-7.0) Basophils % 0.2% (0.0-2.0) Nucleated Red Blood Cells % 0.0/100WBC (0.0-0.0) Neutrophils # 3.010^3/ul (1.6-7.5) Lymphocytes # 1.310^3/ul (0.8-2.9) Monocytes # 0.710^3/ul (0.3-0.9) Eosinophils # 0.010^3/ul (0.0-0.5) Basophils # 0.010^3/ul (0.0-0.1) Nucleated Red Blood Cells # 0.010^3/ul (0.0-0.0) Sodium Level 140mmol/L (135-144) Potassium Level 4.6mmol/L (3.5-5.1) Chloride Level 105mmol/L (97-110) Carbon Dioxide Level 27mmol/L (21-31) Anion Gap 13 (8-16) Blood Urea Nitrogen 13mg/dl (7-20) Creatinine 0.44mg/dl (0.44-1.00) Glucose Level 100mg/dl (70-220) Calcium Level 8.7mg/dl (8.4-10.2) Phosphorus Level 3.8mg/dl (2.5-4.9) Magnesium Level 1.8mg/dl (1.7-2.5) ZAHRA KENNY May 29, 2017 11:54
[2017-05-29 14:00] VITALS: BP 118/62; RESP 17
[2017-05-29] MEDS: morphine 2 MG INJ IV PRN (17:59)
== END 2017-05-29 20:40 | disposition home or self-care (01) | DRG 312 ==
LOC: E/R 13:53 → MS1 20:03
PROVIDERS: ADMIT Internal Medicine; ATTEND Internal Medicine
DX: I95.1 Orthostatic hypotension (principal); E87.2 Acidosis; K51.90 Ulcerative colitis, unspecified, without complications; N39.0 Urinary tract infection, site not specified; R55 Syncope and collapse; E86.0 Dehydration; D50.0 Iron deficiency anemia secondary to blood loss (chronic); B19.20 Unspecified viral hepatitis C without hepatic coma; R53.83 Other fatigue
CPT/HCPCS: 76705; 76830; 76856; 80048; 80053; 81001; 82728; 83605; 83690; 83735; 84100; 84484; 85014; 85018; 85025; 86706; 86803; 87081; 87086; 87340; 87522; 93005; 93306; 96374; 96375; J0744; J1885; J2270; J7030; J7512